=== PATIENT | male | born 1990 | race Caucasian/White ===

== ENCOUNTER 2018-05-28 18:31 | Emergency (ER) | payer MEDICAID ==
[~2018-05-28] VITALS: Ht 185.4 cm; Wt 93.0 kg
[2018-05-28 18:43] VITALS: BP 128/81
[2018-05-28] MEDS ORDERED: HYDROXYZINE 25MG TABLET PO ONE (20:15)
== END 2018-05-28 20:37 | disposition home or self-care (01) ==
LOC: ER 18:31
DX: F41.9 Anxiety disorder, unspecified (principal)
CPT/HCPCS: 99284